=== PATIENT | male | born 1940 | race Caucasian/White ===

== ENCOUNTER 2017-08-15 22:00 | Emergency (ER) | payer OTHER ==
[2017-08-15 22:12] VITALS: TEMP 99.5
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
--- NOTE | 2017-08-15 23:13 | RAD ---
Chest single view on 08/15/2017 CLINICAL INDICATION: Altered mental status COMPARISON: None FINDINGS: There is mild bibasilar atelectasis. Lungs are otherwise clear. Cardiac, hilar and mediastinal contours are within normal limits. Pulmonary vascularity is within normal limits. IMPRESSION: No acute disease. Electronically signed by: Sam 08/15/2017 11:11 PM CDT
--- NOTE | 2017-08-15 23:18 | CT ---
EXAM: Head CLINICAL INDICATION: 77-year-old male with altered mental status. COMPARISON: None. TECHNIQUE: CT brain without contrast. This exam was performed according to our departmental dose optimization program which includes use of automated exposure control, adjustment of the mA and/or kV according to patient size and/or use of iterative reconstruction technique. FINDINGS: Multifocal regions of patchy hypoattenuation are present in a subcortical and periventricular deep white matter distribution, nonspecific; however, most likely represent small vessel ischemic disease, age indeterminate. Gliosis and encephalomalacia present at the level of the RIGHT parietal lobe compatible with sequela of prior infarction. The ventricles, sulci, and cisterns are symmetric and unremarkable. The madrigal-white matter differentiation is preserved. There is no mass effect, midline shift, intra- or extra-axial fluid collection/acute hemorrhage. The osseous structures are unremarkable. The paranasal sinuses reveal complete opacification of the LEFT maxillary sinus with expansile appearance of the sinus weiner and central increased density raising the question of fungal sinus disease, other etiology including polyp, retention cyst or mucocele. The remaining paranasal sinuses and mastoid air cells are clear. IMPRESSION: 1. No acute intracranial abnormalities. Nonspecific white matter change most likely small vessel ischemic disease, age indeterminate. 2. CT is insensitive for early evaluation of acute stroke. If there is clinical concern for acute ischemia, an MRI may be considered. 3. Chronic sinus disease of the LEFT maxillary sinus with increased density components raising the question of fungal sinus disease, differential as detailed above. Electronically signed by: Kelle Ventura MD 08/15/2017 11:17 PM CDT
[2017-08-16 00:58] VITALS: BP 115/74; O2SAT 97
== END 2017-08-16 01:00 | disposition left against medical advice (07) ==
LOC: ER 22:00
DX: R41.82 Altered mental status, unspecified (principal); R41.0 Disorientation, unspecified; E11.9 Type 2 diabetes mellitus without complications; Z53.29 Procedure and treatment not carried out because of patient's decision for other reasons; Z79.4 Long term (current) use of insulin; Z86.73 Personal history of transient ischemic attack (TIA), and cerebral infarction without residual deficits